=== PATIENT | male | born 1980 | race Caucasian/White ===

== ENCOUNTER 2020-07-25 10:20 | Outpatient (REF) | payer BC, SELFPAY ==
[2020-07-25 11:15] LABS: MANUAL DIFF FLAG NO
[2020-07-25 11:33] LABS: Basophils Absolute Auto 0.1 X10*3/uL (0.0-0.2); Basophils Percent Auto 1.3 % (0-2); Eosinophils Absolute Auto 0.2 X10*3/uL (0.0-0.4); Eosinophils Percent Auto 2.3 % (0-4); Hematocrit 43.7 % (42-52); Hemoglobin 14.6 g/dl (14.0-18.0); Imm Gran Abs Auto 0.08 X10*3/uL (0.00-0.03); Lymphocytes Absolute Auto 3.3 X10*3/uL (1.2-4.9); Lymphocytes Percent Auto 40.5 % (20-40); Mean Corpuscular HGB Conc 33.4 g/dl (31.0-36.0); Mean Corpuscular Hemoglobin 30.4 pg (27.0-33.0); Mean Corpuscular Volume 90.9 fL (80-98); Mean Platelet Volume 10.9 fL (9.4-12.4); Monocytes Absolute Auto 0.9 X10*3/uL (0.1-1.2); Monocytes Percent Auto 11.1 % (2-11); Neutrophils Absolute Auto 3.6 X10*3/uL (2.0-8.3); Neutrophils Percent Auto 43.8 % (45-73); Platelet Count 196 X10*3/uL (160-400); Red Blood Count 4.81 X10*6/uL (4.60-5.80); Red Cell Distribution Width 13.1 % (11.0-16.0); White Blood Count 8.2 X10*3/uL (4.8-10.8)
[2020-07-25 12:16] LABS: Microalbum/Creatinine Ratio Ur 3.9 ug/mg cr
[2020-07-25 12:16] LABS: Uric Acid 7.5 mg/dL (3.4-7.0)
[2020-07-25 12:18] LABS: Alanine Aminotransferase 37 U/L (0-40); Albumin Level 4.6 g/dL (3.5-5.0); Alkaline Phosphatase 84 U/L (39-117); Anion Gap 13 (12-20); Aspartate Amino Transferase 31 U/L (5-37); Bilirubin Total 0.8 mg/dL (0.0-1.0); Blood Urea Nitrogen 18 mg/dL (9-16); Calcium 9.6 mg/dL (8.4-10.2); Carbon Dioxide 29 mmol/L (22-29); Chloride 103 mmol/L (96-108); Cholesterol 192 mg/dL; Estimated Glomerular Filt Rate > 60; Glucose Fasting 92 mg/dL (60-99); HDL Cholesterol 41 mg/dL; LDL Cholesterol Calculated 131 mg/dl; Potassium 4.3 mmol/L (3.3-5.1); Sodium 141 mmol/L (135-145); Triglycerides 102 mg/dL
[2020-07-25 12:40] LABS: TSH reflex Free T4 0.13 uIU/mL (0.32-4.0)
[2020-07-25 13:32] LABS: Free T4 (Free Thyroxine) 1.09 ng/dL (0.71-1.85)
== END 2020-07-25 10:21 | disposition home or self-care (01) ==
LOC: HO.LAB 10:20
PROVIDERS: Family Medicine; Visit Provider Physician Assistant
DX: I10 Essential (primary) hypertension (principal); E03.9 Hypothyroidism, unspecified; M79.671 Pain in right foot
CPT/HCPCS: 36415; 80053; 80061; 82043; 84439; 84443; 84550; 85025

== ENCOUNTER 2021-09-07 09:07 | Outpatient (REF) | payer OTHER, SELFPAY ==
[2021-09-07 10:13] LABS: Hemoglobin 13.8 g/dl (14.0-18.0); Mean Corpuscular HGB Conc 32.9 g/dl (31.0-36.0); Mean Corpuscular Hemoglobin 29.4 pg (27.0-33.0); Mean Corpuscular Volume 89.6 fL (80.0-98.0); Mean Platelet Volume 11.5 fL (9.4-12.4); Platelet Count 209 X10*3/uL (160-400); Red Blood Count 4.69 X10*6/uL (4.60-5.80); Red Cell Distribution Width 12.9 % (11.0-16.0); White Blood Count 6.4 X10*3/uL (4.8-10.8)
[2021-09-07 10:35] LABS: Creatinine Urine 279.71 mg/dL; Microalbum/Creatinine Ratio Ur 4.2 ug/mg cr
[2021-09-07 10:42] LABS: Alanine Aminotransferase 16 U/L (0-40); Albumin Level 4.3 g/dL (3.5-5.0); Alkaline Phosphatase 73 U/L (39-117); Anion Gap 11 (12-20); Aspartate Amino Transferase 25 U/L (5-37); Bilirubin Total 0.6 mg/dL (0.0-1.0); Blood Urea Nitrogen 17 mg/dL (9-16); Calcium 9.1 mg/dL (8.4-10.2); Carbon Dioxide 25 mmol/L (22-29); Chloride 109 mmol/L (96-108); Cholesterol 184 mg/dL; Estimated Glomerular Filt Rate > 60; Glucose Fasting 106 mg/dL (60-99); HDL Cholesterol 34 mg/dL; LDL Cholesterol Calculated 133 mg/dl; Potassium 4.6 mmol/L (3.3-5.1); Sodium 140 mmol/L (135-145); Total Protein 6.5 g/dL (6.5-8.0); Triglycerides 85 mg/dL
[2021-09-07 10:54] LABS: TSH reflex Free T4 0.04 uIU/mL (0.32-4.0)
[2021-09-07 12:13] LABS: Free T4 (Free Thyroxine) 1.41 ng/dL (0.71-1.85)
== END 2021-09-07 09:08 | disposition home or self-care (01) ==
LOC: HO.LAB 09:07
PROVIDERS: PCP Physician Assistant; Visit Provider Physician Assistant
DX: I10 Essential (primary) hypertension (principal); E03.9 Hypothyroidism, unspecified
CPT/HCPCS: 36415; 80053; 80061; 82043; 84439; 84443; 85027

== ENCOUNTER 2022-07-29 13:19 | Emergency (ER) | payer OTHER, SELFPAY ==
--- NOTE | ~2022-07-29 | XR_ITS ---
EXAMINATION: Lumbar spine and cervical spine. CLINICAL INDICATIONS: The. Pain. COMPARISON: MRI lumbar spine 05/08/2011 TECHNIQUE: 3 views lumbar spine and 3 views cervical spine. FINDINGS: Lumbar spine: There is maintained lumbar lordosis. There is loss of L5-S1 disc height. Rest the disc heights are normal. No visible acute fracture, dislocation or subluxation seen. The paravertebral soft tissues are normal. Cervical spine: There is normal cervical lordosis. The vertebral heights, alignment and disc heights are normal. No visible acute fracture, dislocation or subluxation seen. No bony mallet. The soft tissues are normal. XR/XR lumbar spine 2-3V IMPRESSION: Unremarkable lumbar spine exam. Unremarkable cervical spine exam.
--- NOTE | ~2022-07-29 | XR_ITS ---
EXAMINATION: Lumbar spine and cervical spine. CLINICAL INDICATIONS: The. Pain. COMPARISON: MRI lumbar spine 05/08/2011 TECHNIQUE: 3 views lumbar spine and 3 views cervical spine. FINDINGS: Lumbar spine: There is maintained lumbar lordosis. There is loss of L5-S1 disc height. Rest the disc heights are normal. No visible acute fracture, dislocation or subluxation seen. The paravertebral soft tissues are normal. Cervical spine: There is normal cervical lordosis. The vertebral heights, alignment and disc heights are normal. No visible acute fracture, dislocation or subluxation seen. No bony mallet. The soft tissues are normal. XR/XR cervical spine 2V IMPRESSION: Unremarkable lumbar spine exam. Unremarkable cervical spine exam.
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
[2022-07-29 14:40] VITALS: BP 136/87; PULSE 67; RESP 18; TEMP 36.3; O2SAT 98; BMI 25.4
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
[2022-07-29] MEDS: Cyclobenzaprine HCl 10 MG TABLET PO (16:19)
[2022-07-29] MEDS: oxyCODONE HCl Immed Release 5 MG TABLET PO (16:20)
--- NOTE | 2022-07-29 16:23 | PC.NURSE ---
pt medicated per MAY for 10/24 left sided lower back, neck and shoulder pain, call baeza within reach [facility]
== END 2022-07-29 16:34 | disposition home or self-care (01) ==
PROVIDERS: Emergency Provider Emergency Medicine; PCP Physician Assistant
DX: S39.012A Strain of muscle, fascia and tendon of lower back, initial encounter (principal); M54.2 Cervicalgia; M54.16 Radiculopathy, lumbar region; V43.62XA Car passenger injured in collision with other type car in traffic accident, initial encounter; Y93.9 Activity, unspecified; Y92.410 Unspecified street and highway as the place of occurrence of the external cause; Y99.9 Unspecified external cause status; Z79.899 Other long term (current) drug therapy
CPT/HCPCS: 72040; 72100; 99283

== ENCOUNTER 2022-09-16 10:29 | Outpatient (REF) | payer SELFPAY | END 2022-09-16 10:30 | disposition home or self-care (01) | LOC: HO.LAB 10:29 | PROVIDERS: PCP Physician Assistant; Visit Provider Physician Assistant | DX: I10 Essential (primary) hypertension (principal) | CPT/HCPCS: 36415; 80053; 80061; 82043; 84443; 85027 ==

== ENCOUNTER 2022-10-29 11:00 | Outpatient (AMB) | payer OTHER, SELFPAY ==
[2022-10-29 11:13] VITALS: BP 112/68; PULSE 64; O2SAT 98; BMI 23.9
--- NOTE | 2022-10-29 11:13 | MHC.PC.OV ---
Vital Signs 10/29/22 11:13 Height 5 ft 7 in Weight 152 lb 8 oz BMI 23.9 BP 112/68 Blood Pressure Location Lt brachial Position Sitting Pulse 64 Pulse Source Pulse Oximeter Pulse Oximetry (%) 98 Oxygen Delivery Method Room Air Intake Visit Reasons: PE Allergies No Known Allergies Allergy (Verified 10/29/22 11:39) Medication List - Last Reconciled 10/29/22 by Ean Navarro PA-C celecoxib 100 mg PO BID cholecalciferol (vitamin D3) 25 mcg PO DAILY levothyroxine 125 mcg PO DAILY 90 days methocarbamol 750 mg PO BEDTIME pregabalin 75 mg PO BID sildenafil 50 mg PO DAILY PRN sumatriptan succinate 100 mg PO ONCE PRN 7 days tramadol 50 mg PO DAILY PRN 30 days Tobacco use date assessed: 06/19/22 HPI PE HPI Details Patient is a 42--year-old male here today for routine annual physical Patient has a past medical history significant for hypothyroidism, GERD, anxiety, history alcohol abuse, chronic lumbar spine pain. Concerns-> he reports his anxiety has been difficult to control, often having trouble with his concentration and focus on his job task and in his personal life. He is planning on establishing with a mental health therapist and trying mine from this to help him with his attention focus. --> of note he does report his father recently diagnosed with stage IV esophageal and liver cancer. ? .. ? Major depressive disorder:? Feels his depression is well managed without mental health medications.? Has been sober now for 4 years?. 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 ? .. ? Hypertension: Has been checking his blood pressure at home reports systolic blood pressure is 1 teens to 120s.? Denies any chest discomfort palpitations.? .. ? Hypothyroid:? Patient's most recent TSH continues to be low.? Otherwise patient without hyper thyroid symptoms. Will reduce his dose of levothyroxine to 125 mcg ? .. ? Lumbar spine pain:? Patient is followed by [facility] and received cortisone injection lumbar spine which helped 50 %.? Patient reports his lumbar spine pain has been stable only using 1 tramadol in the evening. Also was started methocarbamol 750 which he reports helps his lumbar spine pain..? Vaccines: Up-to-date COVID and tetanus vaccine. Laboratory Tests 09/16/22 09/16/22 10:38 10:38 Hgb 14.0 Creatinine 1.01 Fasting Glucose 111 H Cholesterol 196 TSH 0.89 [facility] Medical History (Updated 10/29/22 @ 16:20 by Ean Navarro PA-C) Erectile dysfunction Surgical History No history of previous surgery Family History (Updated 10/29/22 @ 11:42 by Ean Navarro PA-C) Mother Hypertension Hypothyroidism Father Type 1 diabetes Morbidly obese Esophageal cancer Maternal Uncle Mental health disorder Paternal Grandfather Colon cancer Other Substance use disorder Social History Housing: House Alcohol intake: former Year quit: 2019 Patient Tobacco Use Status: Never used Tobacco e-Cigarette/Vaping Use: Never Used Second Hand Smoke Exposure: No service: No Current occupational status: employed 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 1. Little interest or pleasure in doing things: not at all 2. Feeling down, depressed, or hopeless: not at all 3. Trouble falling or staying asleep, or sleeping too much: not at all 4. Feeling tired or having little energy: not at all 5. Poor appetite or overeating: not at all 6. Feeling bad about yourself - or that you are a failure or have let yourself or your family down: not at all 7. Trouble concentrating on things, such as reading the newspaper or watching television: not at all 8. Moving or speaking so slowly that other people could have noticed. Or the opposite - being so fidgety or restless that you have been moving around a lot more than usual: not at all 9. Thoughts that you would be better off or of hurting yourself in some way: not at all Total score: 0 Depression Screening Interpretation: Negative 61591 - PHQ-9 Billing: Yes Source: Developed by Keyona OrdazW. Kal, Bonifacio Call and colleagues, with an educational layton from [employer]. Thrive Questionnaire Date Thrive assessed: 06/19/22 I am a: Patient What is your living situation today?: I have a steady place to live Within the past 12 months, did the food you bought not last and you didn't have the money to get more?: Never true Within the past 12 months, did you worry whether your food would run out before you got money to buy more?: Never true AUDIT C Alcohol Use Questionnaire (AUDIT-C) 1. How often do you have a drink containing alcohol?: Never 3. How often do you have six or more drinks on one occasion?: Never Total Score: 0 GISELL-7 AMB Questionnaire GISELL-7 Date GISELL - 7 assessed: 06/19/22 Feeling nervous, anxious, or on edge: 3 = Nearly every day Not being able to stop or control worryin = More than half the days Worrying too much about different things: 1 = Several days Trouble relaxin = Not at all Being so restless that it is hard to sit still: 0 = Not at all Becoming easily annoyed or irritable: 0 = Not at all Feeling afraid as if something awful might happen: 2 = More than half the days Total GISELL-7 score (0-4 normal; 5-9 mild; 10-14 moderate; 15-21 severe): 8 Source: Developed by Drs. Tiago Jalloh, Bonifacio Jaimes and colleagues, with an educational layton from [employer]. GISELL-7 Assessment Billing GISELL-7 Assessment Tool: GISELL-7 Assessment 76244 Review of Systems Const Denies body aches, Denies chills, Denies excessive sweating, Denies fatigue, Denies fever(s) and Denies headache(s) Eyes Denies blurry vision ENT Denies dysphagia, Denies vertigo, Denies dizziness, Denies headache(s), Denies hearing loss and Denies tinnitus Card Denies chest pain, Denies chest pain with activity, Denies syncope, Denies irregular heart rhythm and Denies dyspnea Resp Denies chest congestion, Denies cough, Denies hemoptysis, Denies dyspnea and Denies wheezing GI Denies abdominal pain, Denies melena, Denies hematochezia, Denies coffee ground emesis, Denies dysphagia, Denies diarrhea, Denies nausea and Denies vomiting Denies difficulty urinating, Denies dysuria, Denies urinary frequency, Denies urinary hesitancy and Denies urinary urgency Musc Denies arthralgias, Denies limited range of motion, Denies muscle cramps and Denies muscle weakness Skin/Breast Denies rash and Denies skin ulcer Neuro Denies Abnormal speech present, Denies confusion, Denies vertigo, Denies dizziness, Denies syncope, Denies headache(s), Denies memory loss and Denies seizure-like activity Psych Denies anxiety, Denies confusion, Denies depression, Denies memory loss, Denies panic attacks and Denies paranoia Endo Denies excessive sweating, Denies fatigue, Denies flushing, Denies polydipsia and Denies polyuria Aller/Immun Denies wheezing Physical exam (Primary Care) Vital Signs: Last Vital Signs Pulse 64 10/29/22 11:13 BP 112/68 10/29/22 11:13 Pulse Ox 98 10/29/22 11:13 Oxygen Delivery Method Room Air 10/29/22 11:13 BMI result Body Mass Index 23.9 Tobacco/Smoking Status: Tobacco use Status Tobacco use date assessed 06/19/22 10/29/22 11:17 Patient Tobacco Use Status Never used Tobacco 10/29/22 11:17 e-Cigarette/Vaping Use Never Used 10/29/22 11:17 PHQ-9: PHQ-9 Score PHQ-9: Total score 0 10/29/22 11:43 Depression Screening Interpretation: Negative Thrive Assessment: Date of Thrive Assessment Date Thrive assessed 06/19/22 10/29/22 11:17 Const General: cooperative, comfortable, no acute distress, alert and awake; No confusion Orientation/consciousness: oriented to person, oriented to place, patient oriented x3 and No confusion HENMT Head: Yes normocephalic Ears: external ears normal and TM's normal bilaterally Face and sinus: No sinus tenderness Mouth: Normal oral and palatal mucosa present and tongue normal Teeth and gingiva: dentition normal and gingiva normal Throat: Yes posterior oropharynx normal, Yes tonsils normal and Yes uvula midline Eyes Conjunctivae: conjunctivae normal Sclerae: sclerae normal Pupils: Equal, round and reactive pupils present EOM: EOMs intact bilaterally Direct Ophthalmoscopy: No no photophobia Neck Neck: Yes no lymphadenopathy, No tender and Yes no JVD Thyroid: Thyroid normal Carotids: no bruits Chest Chest palpation & inspection: no tenderness Resp Effort & Inspection: normal respiratory effort, no audible wheezes, not labored and no stridor Auscultation: no crackles, no rales, no rhonchi and no wheezes Cardio Jugular venous distension: no JVD Rate: regular rate, not bradycardic and not tachycardic Rhythm: regular rhythm Bruits: no carotid bruits Peripheral pulses: Peripheral pulses 2+ throughout GI Inspection: Yes normal to inspection, No abdominal wall ecchymosis and No visible herniation Palpation (GI): Soft to palpation, nontender, no guarding, not rigid and No hepatosplenomegaly present Auscultation: normoactive bowel sounds General: Yes no CVA tenderness Back/Spine/Pelvis Back: no CVA tenderness and No back tenderness Cervical Spine: cervical ROM normal Thoracic/Lumbar Spine: thoracic and lumbar spine normal to inspection, straight leg raise negative bilaterally, No thoraco-lumbar ROM limited and No lumbar spinal tenderness Skin Lesions: no lesions Rashes: no rashes Wounds: no wounds Neuro General: oriented to person, oriented to place, patient oriented x3, CN's II-XI intact bilaterally and No confusion Cranial nerves: Yes Equal, round and reactive pupils present and Yes Normal accommodation reflex present Cognition (Neuro): normal cognition Speech: No Abnormal speech present Gait exam (Neuro): Normal gait present Motor exam (neuro): 5/5 motor strength present throughout Extrem Right upper extremity: full ROM; no cyanosis Left upper extremity: full ROM; no cyanosis Right lower extremity: no edema Left lower extremity: no edema Psych Appearance: grossly normal Mental Status: mental status grossly normal Affect: normal affect Attitude: cooperative Thought process: Normal thought process present Assessment and Plan Assessment & Plan (1) Annual physical exam: Code(s): Z00.00 - Encounter for general adult medical examination without abnormal findings (2) GISELL (generalized anxiety disorder): Code(s): F41.1 - Generalized anxiety disorder Plan: Patient's GISELL-7 score positive for moderate anxiety which has been existing condition for him. Does report increased anxiety as of late and attributes this to his new work and personal problems in his life. He reports he is able to manage though would like to speak with a mental therapist (3) HTN (hypertension): Code(s): I10 - Essential (primary) hypertension Qualifiers: Hypertension type: essential hypertension Qualified Code(s): I10 - Essential (primary) hypertension Plan: Blood pressure acceptable today in office. His blood pressure now is lifestyle managed. Goal blood pressure is to remain below 140/90 (4) Hypothyroidism: Code(s): E03.9 - Hypothyroidism, unspecified Qualifiers: Hypothyroidism type: unspecified Qualified Code(s): E03.9 - Hypothyroidism, unspecified Plan: Patient continues on levothyroxine 125 mcg. Most recent TSH has been stable. Will continue to follow TSH to assure normal. (5) Migraines: Code(s): G43.909 - Migraine, unspecified, not intractable, without status migrainosus Qualifiers: Intractability: not intractable Migraine type: without aura Status migrainosus presence: without status migrainosus Qualified Code(s): G43.009 - Migraine without aura, not intractable, without status migrainosus Plan: Patient reports migraines have been fairly well controlled since he has been sober from alcohol and only has his use a med a Triptan and very limited p.r.n. basis. (6) History of alcohol use disorder: Code(s): Z87.898 - Personal history of other specified conditions Plan: Has been sober now for many years from a guerrier and continues in a 12 step program. He remains focused on his sobriety (7) Lumbar spondylosis with myelopathy: Code(s): M47.16 - Other spondylosis with myelopathy, lumbar region Plan: Continues to use Lyrica, methocarbamol and tramadol with decent affect on reducing his lumbar spine pain. Does periodically see a cad application support specialist and gets cortisone injections in his lower lumbar spine Orders: Orders Comprehensive [place]. Panel Fast 365 Days I10 - Essential (primary) hypertension TSH reflex Free T4 365 Days E03.9 - Hypothyroidism, unspecified Complete Blood Count no Diff 365 Days I10 - Essential (primary) hypertension CT NG by PCR Today E03.9 - Hypothyroidism, unspecified, Z20.2 - Contact with and (suspected) exposure to infections with a predominantly sexual mode of transmission HIV Ab/Ag Today E03.9 - Hypothyroidism, unspecified, Z11.3 - Encounter for screening for infections with a predominantly sexual mode of transmission Syphilis Screen Today E03.9 - Hypothyroidism, unspecified, Z11.3 - Encounter for screening for infections with a predominantly sexual mode of transmission Referrals Counseling Referral F41.1 - Generalized anxiety disorder Coding Level of Care Code Est Pt Prev Care 40-64y(59310) Diagnoses Annual physical exam Z00.00 GISELL (generalized anxiety disorder) F41.1 HTN (hypertension) I10 Hypertension type: essential hypertension Hypothyroidism E03.9 Hypothyroidism type: unspecified Migraines G43.009 Intractability: not intractable Migraine type: without aura Status migrainosus presence: without status migrainosus History of alcohol use disorder Z87.898 Lumbar spondylosis with myelopathy M47.16 Additional Codes GISELL-7 Assessment Billing - GISELL-7 Assessment Tool: GISELL-7 Assessment [id number] ([id number])
== END 2022-10-29 11:55 | disposition home or self-care (01) ==
PROVIDERS: PCP Physician Assistant; Visit Provider Physician Assistant
DX: Z00.00 Encounter for general adult medical examination without abnormal findings (principal); I10 Essential (primary) hypertension; E03.9 Hypothyroidism, unspecified; Z87.898 Personal history of other specified conditions; G43.009 Migraine without aura, not intractable, without status migrainosus; F41.1 Generalized anxiety disorder; M47.16 Other spondylosis with myelopathy, lumbar region
CPT/HCPCS: 99396

== ENCOUNTER 2022-10-29 12:05 | Outpatient (REF) | payer OTHER, SELFPAY ==
[2022-10-29 14:34] LABS: Syphilis Screen Nonreactive (Nonreactive)
[2022-10-30 04:02] LABS: HIV AB/AG Nonreactive (Nonreactive); HIV Num 1 0.06 S/CO (0.00-0.99)
[2022-10-30 14:55] LABS: CT PCR NOT DETECTED (Not Detect.); NG PCR NOT DETECTED (Not Detect.)
== END 2022-10-29 12:06 | disposition home or self-care (01) ==
LOC: HO.LAB 12:05
PROVIDERS: PCP Physician Assistant; Visit Provider Physician Assistant
DX: Z11.4 Encounter for screening for human immunodeficiency virus [HIV] (principal); E03.9 Hypothyroidism, unspecified; Z20.2 Contact with and (suspected) exposure to infections with a predominantly sexual mode of transmission
CPT/HCPCS: 0353U; 84443; 86780; 87389

== ENCOUNTER 2023-05-01 10:49 | Outpatient (AMB) | payer OTHER, SELFPAY ==
[2023-05-01 10:53] VITALS: BP 122/70; PULSE 85; O2SAT 97; BMI 24.1
--- NOTE | 2023-05-01 10:53 | MHC.PC.OV ---
Vital Signs 05/01/23 10:53 Height 5 ft 7 in Weight 154 lb 0.8 oz BMI 24.1 BP 122/70 Blood Pressure Location Lt brachial Position Sitting Pulse 85 Pulse Source Pulse Oximeter Pulse Oximetry (%) 97 Oxygen Delivery Method Room Air Intake Visit Reasons: f/u hypothyroid Intake Note: Patient is here to follow up on hypothyroid Sustainability Manager Required: No Allergies No Known Allergies Allergy (Verified 05/01/23 11:01) Medication List - Last Reconciled 05/01/23 by Ean Navarro PA-C celecoxib 100 mg PO BID cholecalciferol (vitamin D3) 25 mcg PO DAILY levothyroxine 125 mcg PO DAILY 90 days methocarbamol 750 mg PO BEDTIME pregabalin 75 mg PO BID sumatriptan succinate 100 mg PO ONCE PRN 7 days tadalafil (Cialis) 20 mg PO DAILY 7 days tramadol 50 mg PO DAILY PRN 30 days Tobacco use date assessed: 05/01/23 Dental Screening Dental Screen Date: 05/01/23 HPI f/u hypothyroid HPI Details Patient is a 42--year-old male here today for follow-up visit. Patient has a past medical history significant for hypothyroidism, GERD, anxiety, history alcohol abuse, chronic lumbar spine pain. Concerns-> he reports his anxiety has been difficult to control, often having trouble with his concentration and focus on his job task and in his personal life. He established with a mental health therapist he sees every week. He believes his anxiety has increased due to more work stress and responsibilities. We did discuss as needed medication for anxiety though he would like to work on nonpharmacological techniques to reduce his anxiety. .. ? Major depressive disorder:? Feels his depression is well managed without mental health medications.? Has been sober now for 4 years?. 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 ? .. ? Hypertension: Has been checking his blood pressure at home reports systolic blood pressure is 1 teens to 120s.? Denies any chest discomfort palpitations.? .. ? Hypothyroid:? Most recent TSH has been stable. He continues on levothyroxine 125 mcg. ? .. ? Lumbar spine pain:? Patient is followed by spine in [facility] and received cortisone injection lumbar spine which helped 50 %.? Patient reports his lumbar spine pain has been stable only using 1 tramadol in the evening. Also was started methocarbamol 750 which he reports helps his lumbar spine pain.. 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 1. Little interest or pleasure in doing things: not at all 2. Feeling down, depressed, or hopeless: not at all 3. Trouble falling or staying asleep, or sleeping too much: not at all 4. Feeling tired or having little energy: not at all 5. Poor appetite or overeating: not at all 6. Feeling bad about yourself - or that you are a failure or have let yourself or your family down: not at all 7. Trouble concentrating on things, such as reading the newspaper or watching television: not at all 8. Moving or speaking so slowly that other people could have noticed. Or the opposite - being so fidgety or restless that you have been moving around a lot more than usual: not at all 9. Thoughts that you would be better off or of hurting yourself in some way: not at all Total score: 0 Depression Screening Interpretation: Negative Depression Screening Done: Yes 79279 - PHQ-9 Billing: Yes Source: Developed by Drs. Tiago Jalloh, KeyonaBonifacio Leon and colleagues, with an educational layton from [employer]. Thrive Questionnaire Date Thrive assessed: 05/01/23 GISELL-7 AMB Questionnaire GISELL-7 Date GISELL - 7 assessed: 06/19/22 Feeling nervous, anxious, or on edge: 2 = More than half the days Not being able to stop or control worryin = More than half the days Worrying too much about different things: 2 = More than half the days Trouble relaxin = Nearly every day Being so restless that it is hard to sit still: 1 = Several days Becoming easily annoyed or irritable: 0 = Not at all Feeling afraid as if something awful might happen: 0 = Not at all Total GISELL-7 score (0-4 normal; 5-9 mild; 10-14 moderate; 15-21 severe): 10 Source: Developed by Drs. Tiago Jalloh, Bonifacio Jaimes and colleagues, with an educational layton from [employer]. GISELL-7 Assessment Billing GISELL-7 Assessment Tool: GISELL-7 Assessment [id number] Physical exam (Primary Care) Vital Signs: Last Vital Signs Pulse 85 05/01/23 10:53 BP 122/70 05/01/23 10:53 Pulse Ox 97 05/01/23 10:53 Oxygen Delivery Method Room Air 05/01/23 10:53 BMI result Body Mass Index 24.1 Tobacco/Smoking Status: Tobacco use Status Tobacco use date assessed 05/01/23 05/01/23 11:02 Patient Tobacco Use Status Never used Tobacco 05/01/23 10:54 e-Cigarette/Vaping Use Never Used 05/01/23 10:54 PHQ-9: PHQ-9 Score PHQ-9: Total score 0 05/01/23 11:21 Depression Screening Interpretation: Negative Thrive Assessment: Date of Thrive Assessment Date Thrive assessed 05/01/23 05/01/23 11:02 Assessment and Plan Assessment & Plan (1) GISELL (generalized anxiety disorder): Code(s): F41.1 - Generalized anxiety disorder Plan: He reports he has been suffering with more anxiety and attributes this to work-related stress and more responsibilities at work. He has not interested in starting any new medication at this time for his anxiety though is contemplating this. He is seeing a mental health therapist on a weekly basis. (2) HTN (hypertension): Code(s): I10 - Essential (primary) hypertension Qualifiers: Hypertension type: essential hypertension Qualified Code(s): I10 - Essential (primary) hypertension Plan: Blood pressure acceptable today in office. His blood pressure now is lifestyle managed. Goal blood pressure is to remain below 140/90 (3) Hypothyroidism: Code(s): E03.9 - Hypothyroidism, unspecified Qualifiers: Hypothyroidism type: unspecified Qualified Code(s): E03.9 - Hypothyroidism, unspecified Plan: Patient continues on levothyroxine 125 mcg. Most recent TSH has been stable. Will continue to follow TSH to assure normal. (4) Migraines: Code(s): G43.909 - Migraine, unspecified, not intractable, without status migrainosus Qualifiers: Migraine type: without aura Status migrainosus presence: without status migrainosus Intractability: not intractable Qualified Code(s): G43.009 - Migraine without aura, not intractable, without status migrainosus Plan: Patient reports migraines have been fairly well controlled since he has been sober from alcohol and only has his use a med a Triptan and very limited p.r.n. basis. (5) History of alcohol use disorder: Code(s): Z87.898 - Personal history of other specified conditions Plan: Has been sober now for many years from a guerrier and continues in a 12 step program. He remains focused on his sobriety and feels well (6) Lumbar spondylosis with myelopathy: Code(s): M47.16 - Other spondylosis with myelopathy, lumbar region Plan: Continues to use Lyrica, methocarbamol and tramadol with decent affect on reducing his lumbar spine pain. Does periodically see a gis specialist and gets cortisone injections in his lower lumbar spine Orders: Orders Microalbumin, Random (w Creat) Today I10 - Essential (primary) hypertension Comprehensive [place]. Panel Fast Today I10 - Essential (primary) hypertension TSH reflex Free T4 Today E03.9 - Hypothyroidism, unspecified Coding Level of Care Code Est Pt Level 4 (28708) Diagnoses GISELL (generalized anxiety disorder) F41.1 Essential hypertension I10 Hypertension type: essential hypertension Hypothyroidism, unspecified type E03.9 Hypothyroidism type: unspecified Migraine without aura and without status migrainosus, not intractable G43.009 Migraine type: without aura Status migrainosus presence: without status migrainosus Intractability: not intractable History of alcohol use disorder Z87.898 Lumbar spondylosis with myelopathy M47.16 Additional Codes GISELL-7 Assessment Billing - GISELL-7 Assessment Tool: GISELL-7 Assessment [id number] ([id number])
== END 2023-05-01 11:52 | disposition home or self-care (01) ==
PROVIDERS: PCP Physician Assistant; Visit Provider Physician Assistant
DX: I10 Essential (primary) hypertension (principal); F41.1 Generalized anxiety disorder; E03.9 Hypothyroidism, unspecified; G43.009 Migraine without aura, not intractable, without status migrainosus; Z87.898 Personal history of other specified conditions; M47.16 Other spondylosis with myelopathy, lumbar region
CPT/HCPCS: 99214

== ENCOUNTER 2023-12-24 09:26 | Outpatient (AMB) | payer OTHER, SELFPAY ==
--- NOTE | 2023-12-24 09:27 | MHC.PC.OV ---
Vital Signs 12/24/23 09:34 Height 5 ft 7 in Weight 171 lb 6 oz BMI 26.8 BP 116/82 Blood Pressure Location Lt brachial Position Sitting Pulse 67 Pulse Source Pulse Oximeter Pulse Oximetry (%) 97 Oxygen Delivery Method Room Air Intake Visit Reasons: annual exam Intake Note: Patient is here today for a physical. Mini Lab Operator Required: No Accompanied by: Self / Same As Patient Allergies No Known Allergies Allergy (Verified 12/24/23 09:35) Medication List - Last Reconciled 12/24/23 by Ean Navarro PA-C buspirone 5 mg PO BID 30 days celecoxib 100 mg PO BID cholecalciferol (vitamin D3) 25 mcg PO DAILY levothyroxine 125 mcg PO DAILY 90 days methocarbamol 750 mg PO BEDTIME pregabalin 75 mg PO BID sumatriptan succinate 100 mg PO ONCE PRN 7 days tadalafil (Cialis) 20 mg PO DAILY 7 days tramadol 50 mg PO DAILY PRN 30 days Tobacco use date assessed: 12/24/23 Dental Screening Dental Screen Date: 12/24/23 Did you have a dental visit in the last 12 months?: Yes Did you have a dental problem in the last 6 months where you did not have access to dental care?: No Was dental information given to patient?: Patient has dentist HPI annual exam HPI Details Patient is a 43--year-old male here today for annual physical. Patient has a past medical history significant for hypothyroidism, GERD, anxiety, history alcohol abuse, chronic lumbar spine pain. Anxiety: Patient does report using buspirone 5 mg before bed which has helped him with his anxiety. He is still does have breakthrough anxiety related to his work and stress. .. ? Major depressive disorder:? Feels his depression is well managed without mental health medications.? Has been sober now for nearly 5 years?. 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 ? .. ? Hypertension: Has been checking his blood pressure at home reports systolic blood pressure is 1 teens to 120s.? Denies any chest discomfort palpitations.? .. ? Hypothyroid:? Most recent TSH has been stable. He continues on levothyroxine 125 mcg. ? .. ? Lumbar spine pain:? Patient is followed by [facility] in [facility] and received cortisone injection lumbar spine which helped 50 %.? Patient reports his lumbar spine pain has been stable for the most part though at times he does need an extra tremor though during the day to help him with his pain. He is interested in increasing his total monthly amount of tremor though in order to be able to take an extra dose. He does understand they habit-forming nature of tramadol and does promise to use on a p.r.n. basis Vaccines: Up-to-date with COVID vaccine, tetanus vaccine, considering flu vaccine today. 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 1. Little interest or pleasure in doing things: not at all 2. Feeling down, depressed, or hopeless: several days 3. Trouble falling or staying asleep, or sleeping too much: not at all 4. Feeling tired or having little energy: not at all 5. Poor appetite or overeating: not at all 6. Feeling bad about yourself - or that you are a failure or have let yourself or your family down: not at all 7. Trouble concentrating on things, such as reading the newspaper or watching television: more than half the days 8. Moving or speaking so slowly that other people could have noticed. Or the opposite - being so fidgety or restless that you have been moving around a lot more than usual: not at all 9. Thoughts that you would be better off or of hurting yourself in some way: not at all Total score: 3 [id number] - PHQ-9 Billing: Yes Source: Developed by Drs. Tiago Jalloh, Keyona Bowden, Bonifacio Call and colleagues, with an educational layton from [employer]. Thrive Questionnaire Date Thrive assessed: 12/24/23 I am a: Patient What is your living situation today?: I have a steady place to live Within the past 12 months, did the food you bought not last and you didn't have the money to get more?: Never true Within the past 12 months, did you worry whether your food would run out before you got money to buy more?: Never true Do you have trouble paying for medicines?: No Do you have trouble getting transportation to medical appointments?: No Do you have trouble paying your heating and electricity bill?: No Do you have trouble taking care of your child, family member or friend?: No Do you have trouble with day-to-day activities such as bathing, preparing meals, shopping, managing finances, etc.?: No Are you currently unemployed and looking for a job?: No Are you interested in more education?: No Please select the resources that you would like help with: None Currently or been in a relationship where the following occur: No concerns reported THRIVE Score: 0 AUDIT C Alcohol Use Questionnaire (AUDIT-C) 1. How often do you have a drink containing alcohol?: Never 3. How often do you have six or more drinks on one occasion?: Never Total Score: 0 GISELL-7 AMB Questionnaire GISELL-7 Date GISELL - 7 assessed: 12/24/23 Feeling nervous, anxious, or on edge: 1 = Several days Not being able to stop or control worryin = Several days Worrying too much about different things: 1 = Several days Trouble relaxin = Several days Being so restless that it is hard to sit still: 0 = Not at all Becoming easily annoyed or irritable: 1 = Several days Feeling afraid as if something awful might happen: 1 = Several days Total GISELL-7 score (0-4 normal; 5-9 mild; 10-14 moderate; 15-21 severe): 6 Source: Developed by Drs. Tiago Jalloh, Keyona Bowden, Bonifacio Call and colleagues, with an educational layton from [employer]. GISELL-7 Assessment Billing GISELL-7 Assessment Tool: GISELL-7 Assessment 23866 Review of Systems Const Denies body aches, Denies chills, Denies excessive sweating, Denies fatigue, Denies fever(s) and Denies headache(s) Eyes Denies blurry vision ENT Denies dysphagia, Denies vertigo, Denies dizziness, Denies headache(s), Denies hearing loss and Denies tinnitus Card Denies chest pain, Denies chest pain with activity, Denies syncope, Denies irregular heart rhythm and Denies dyspnea Resp Denies chest congestion, Denies cough, Denies hemoptysis, Denies dyspnea and Denies wheezing GI Denies abdominal pain, Denies melena, Denies hematochezia, Denies coffee ground emesis, Denies dysphagia, Denies diarrhea, Denies nausea and Denies vomiting Denies difficulty urinating, Denies dysuria, Denies urinary frequency, Denies urinary hesitancy and Denies urinary urgency Musc Reports back pain, Denies arthralgias, Denies limited range of motion, Denies muscle cramps and Denies muscle weakness Skin/Breast Denies rash and Denies skin ulcer Neuro Denies Abnormal speech present, Denies confusion, Denies vertigo, Denies dizziness, Denies syncope, Denies headache(s), Denies memory loss and Denies seizure-like activity Psych Denies anxiety, Denies confusion, Denies depression, Denies memory loss, Denies panic attacks and Denies paranoia Endo Denies excessive sweating, Denies fatigue, Denies flushing, Denies polydipsia and Denies polyuria Aller/Immun Denies wheezing Physical exam (Primary Care) Vital Signs: Last Vital Signs Pulse 67 12/24/23 09:34 BP 116/82 12/24/23 09:34 Pulse Ox 97 12/24/23 09:34 Oxygen Delivery Method Room Air 12/24/23 09:34 BMI result Body Mass Index 26.8 Tobacco/Smoking Status: Tobacco use Status Tobacco use date assessed 12/24/23 12/24/23 09:30 Patient Tobacco Use Status Never used Tobacco 12/24/23 09:39 e-Cigarette/Vaping Use Never Used 12/24/23 09:39 PHQ-9: PHQ-9 Score PHQ-9: Total score 3 12/24/23 09:43 Thrive Assessment: Date of Thrive Assessment Date Thrive assessed 12/24/23 12/24/23 09:30 Currently or been in a relationship where the following occur: No concerns reported Const General: cooperative, comfortable, no acute distress, alert and awake; No confusion Orientation/consciousness: oriented to person, oriented to place, patient oriented x3 and No confusion HENMT Head: Yes normocephalic Ears: external ears normal and TM's normal bilaterally Face and sinus: No sinus tenderness Mouth: Normal oral and palatal mucosa present and tongue normal Teeth and gingiva: dentition normal and gingiva normal Throat: Yes posterior oropharynx normal, Yes tonsils normal and Yes uvula midline Eyes Conjunctivae: conjunctivae normal Sclerae: sclerae normal Pupils: Equal, round and reactive pupils present EOM: EOMs intact bilaterally Direct Ophthalmoscopy: No no photophobia Neck Neck: Yes no lymphadenopathy, No tender and Yes no JVD Thyroid: Thyroid normal Carotids: no bruits Chest Chest palpation & inspection: no tenderness Resp Effort & Inspection: normal respiratory effort, no audible wheezes, not labored and no stridor Auscultation: no crackles, no rales, no rhonchi and no wheezes Cardio Jugular venous distension: no JVD Rate: regular rate, not bradycardic and not tachycardic Rhythm: regular rhythm Bruits: no carotid bruits Peripheral pulses: Peripheral pulses 2+ throughout GI Inspection: Yes normal to inspection, No abdominal wall ecchymosis and No visible herniation Palpation (GI): Soft to palpation, nontender, no guarding, not rigid and No hepatosplenomegaly present Auscultation: normoactive bowel sounds General: Yes no CVA tenderness Back/Spine/Pelvis Back: no CVA tenderness and No back tenderness Cervical Spine: cervical ROM normal Thoracic/Lumbar Spine: thoracic and lumbar spine normal to inspection, straight leg raise negative bilaterally, No thoraco-lumbar ROM limited and No lumbar spinal tenderness Skin Lesions: no lesions Rashes: no rashes Wounds: no wounds Neuro General: oriented to person, oriented to place, patient oriented x3, CN's II-XI intact bilaterally and No confusion Cranial nerves: Yes Equal, round and reactive pupils present and Yes Normal accommodation reflex present Cognition (Neuro): normal cognition Speech: No Abnormal speech present Gait exam (Neuro): Normal gait present Motor exam (neuro): 5/5 motor strength present throughout Extrem Right upper extremity: full ROM; no cyanosis Left upper extremity: full ROM; no cyanosis Right lower extremity: no edema Left lower extremity: no edema Psych Appearance: grossly normal Mental Status: mental status grossly normal Affect: normal affect Attitude: cooperative Thought process: Normal thought process present Office Procedures Flu Questionnaire Does the patient have a severe egg allergy?: No Does the patient have severe life threatening allergies?: No Does the patient have a fever or illness today?: No Has the patient ever had Guillain-Kenna Syndrome?: No Has the patient ever had any past reaction to a flu shot?: No Immunizations Fluarix Triv [id number] (PF) 45 mcg (15 mcg x 3)/0.5 mL IM syringe Performing Provider: Ean Navarro PA-C [facility] Administered by: STEPHANIE Maradiaga on 12/24/23 09:35 Dose Route Admin Location Dispensed Lot Number Expiration Date [facility] Mica Builder 0.5 mL IM Right Deltoid 0.5 mL [id number] 09/13/24 24048-187-79 Fav[employer] VIS Given Date VIS Provided VIS Publication Date 12/24/23 Single Vaccine 20 Eligibility Eligibility Date Funding Source Not [facility] Eligible 12/24/23 Private Coding Level of Care Code Est Pt Prev Care 40-64y([id number]) Diagnoses Annual physical exam Z00.00 Essential hypertension I10 Hypertension type: essential hypertension Hypothyroidism, unspecified type E03.9 Hypothyroidism type: unspecified GISELL (generalized anxiety disorder) F41.1 Lumbar spondylosis with myelopathy M47.16 Additional Codes GISELL-7 Assessment Billing - GISELL-7 Assessment Tool: GISELL-7 Assessment 39910 ([id number]) Assessment & Plan Assessment & Plan (1) Annual physical exam: Code(s): Z00.00 - Encounter for general adult medical examination without abnormal findings Category: Medical Plan: As per HPI (2) HTN (hypertension): Code(s): I10 - Essential (primary) hypertension Category: Medical Qualifiers: Hypertension type: essential hypertension Qualified Code(s): I10 - Essential (primary) hypertension Plan: Patient's blood pressure acceptable today in office. His blood pressure is well controlled with lifestyle and dietary modifications. Goal blood pressures to remain below 140/90 (3) Hypothyroidism: Code(s): E03.9 - Hypothyroidism, unspecified Category: Medical Qualifiers: Hypothyroidism type: unspecified Qualified Code(s): E03.9 - Hypothyroidism, unspecified Plan: Most recent TSH stable. Continues with levothyroxine 125 mcg daily. Will continue to follow TSH to assure normal. (4) GISELL (generalized anxiety disorder): Code(s): F41.1 - Generalized anxiety disorder Category: Medical Plan: As per HPI patient has suffered with anxiety for quite some time. He continues with buspirone 5 mg at night with decent affect. Still does have breakthrough anxiety related to stress at work (5) Lumbar spondylosis with myelopathy: Code(s): M47.16 - Other spondylosis with myelopathy, lumbar region Category: Medical Plan: Patient continues to follow back specialist to which he gets injections in his lower lumbar spine quarterly. He does use tramadol, pregabalin and methocarbamol which do a decent job on reducing his pain as well. He is interested in a few extra tramadol to use for breakthrough pain. We discussed increasing his total 30 day tramadol dose to 45 tablets so that patient can use an extra tramadol for bad pain days Orders: Orders Influenza [id number] Immunization Today Z23 - Encounter for immunization Microalbumin, Random (w Creat) Today I10 - Essential (primary) hypertension Comprehensive [place]. Panel Fast Today I10 - Essential (primary) hypertension TSH reflex Free T4 Today E03.9 - Hypothyroidism, unspecified Complete Blood Count no Diff Today I10 - Essential (primary) hypertension Medications: Changed From tramadol 50 mg PO DAILY 30 days PRN 30 tabs 3RF pain M47.16 - Other spondylosis with myelopathy, lumbar region To tramadol 50 mg PO BID PRN 45 tabs 3RF pain 30 days M47.16 - Other spondylosis with myelopathy, lumbar region
[2023-12-24 09:34] VITALS: BP 116/82; PULSE 67; O2SAT 97; BMI 26.8
== END 2023-12-24 09:58 | disposition home or self-care (01) ==
PROVIDERS: PCP Physician Assistant; Visit Provider Physician Assistant
DX: Z00.00 Encounter for general adult medical examination without abnormal findings (principal); I10 Essential (primary) hypertension; E03.9 Hypothyroidism, unspecified; F41.1 Generalized anxiety disorder; M47.16 Other spondylosis with myelopathy, lumbar region; Z23 Encounter for immunization

== ENCOUNTER → 2023-12-24 09:26 | Outpatient (BNVA) | payer OTHER, SELFPAY | PROVIDERS: PCP Physician Assistant; Visit Provider Physician Assistant | DX: Z00.00 Encounter for general adult medical examination without abnormal findings (principal); I10 Essential (primary) hypertension; E03.9 Hypothyroidism, unspecified; F41.1 Generalized anxiety disorder; M47.816 Spondylosis without myelopathy or radiculopathy, lumbar region; Z79.899 Other long term (current) drug therapy; Z23 Encounter for immunization | CPT/HCPCS: 90471; 90656; 96127 ==

== ENCOUNTER 2024-06-24 08:27 | Outpatient (AMB) | payer OTHER, SELFPAY ==
[2024-06-24 08:35] VITALS: BP 104/72; PULSE 64; RESP 16; TEMP 36.4; O2SAT 98; BMI 28.3
--- NOTE | 2024-06-24 08:35 | A.OFFPC_ITS ---
Vital Signs 06/24/24 08:35 Height 5 ft 7 in Weight 180 lb 12.8 oz BMI 28.3 BP 104/72 Blood Pressure Location Lt brachial Position Sitting Respiration 16 Pulse 64 Pulse Source Pulse Oximeter Temp 97.5 F Temp Source Temporal Artery Scan Pulse Oximetry (%) 98 Oxygen Delivery Method Room Air Intake Visit Reasons: f/u reji Senior Systems Analyst Required: No Accompanied by: Self / Same As Patient Allergies No Known Allergies Allergy (Verified 06/24/24 08:45) Medication List - Last Reconciled 06/24/24 by Ean Navarro PA-C celecoxib 100 mg PO BID cholecalciferol (vitamin D3) 25 mcg PO DAILY levothyroxine 125 mcg PO DAILY 90 days methocarbamol 750 mg PO BEDTIME pregabalin 75 mg PO BID sumatriptan succinate take 1 tab at onset of headache; if no relief, may repeat 1 tab after at least 2 hrs; max = 2 tabs/24 hrs PO 30 days tadalafil (Cialis) 20 mg PO DAILY 7 days tramadol 50 mg PO BID PRN 30 days Tobacco use date assessed: 06/24/24 Dental Screening Dental Screen Date: 06/24/24 Did you have a dental visit in the last 12 months?: Yes Did you have a dental problem in the last 6 months where you did not have access to dental care?: No Was dental information given to patient?: Patient has dentist HPI f/u reji HPI Details Patient is a 43--year-old male here today for follow-up visit. Patient has a past medical history significant for hypothyroidism, GERD, anxiety, history alcohol abuse, chronic lumbar spine pain. Anxiety: Patient does report using buspirone 5 mg before bed which has helped him with his anxiety. He is still does have breakthrough anxiety related to his work and stress. .. ? Major depressive disorder:? Feels his depression is well managed without mental health medications.? Has been sober now for nearly 5 years?. 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 ? .. ? Hypertension: Has been checking his blood pressure at home reports systolic blood pressure is 1 teens to 120s.? Denies any chest discomfort palpitations.? .. ? Hypothyroid:? Most recent TSH has been stable. He continues on levothyroxine 125 mcg. Will recheck TSH to ensure stable. ? .. ? Lumbar spine pain:? Patient is followed by spine in [facility] and received cortisone injection lumbar spine which helped 50 %.? Patient reports his lumbar spine pain has been stable for the most part though at times he does need an extra tremor though during the day to help him with his pain. He is interested in increasing his total monthly amount of tremor though in order to be able to take an extra dose. He does understand they habit- forming nature of tramadol and does promise to use on a p.r.n. 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 Cognitive needs: No Hearing needs: No Vision needs: Yes (glasses) Questionnaire Thrive Questionnaire Date Thrive assessed: 06/24/24 I am a: Patient What is your living situation today?: I have a steady place to live Within the past 12 months, did the food you bought not last and you didn't have the money to get more?: Never true Within the past 12 months, did you worry whether your food would run out before you got money to buy more?: Never true Do you have trouble paying for medicines?: No Do you have trouble getting transportation to medical appointments?: No Do you have trouble paying your heating and electricity bill?: No Do you have trouble taking care of your child, family member or friend?: No Do you have trouble with day-to-day activities such as bathing, preparing meals, shopping, managing finances, etc.?: No Are you currently unemployed and looking for a job?: No Are you interested in more education?: No Please select the resources that you would like help with: None Currently or been in a relationship where the following occur: No concerns reported THRIVE Score: 0 AUDIT C Alcohol Use Questionnaire (AUDIT-C) 1. How often do you have a drink containing alcohol?: Never 3. How often do you have six or more drinks on one occasion?: Never Total Score: 0 Score Reviewed/Action Taken: No GISELL-7 AMB Questionnaire GISELL-7 Date GISELL - 7 assessed: 12/24/23 Source: Developed by Drs. Tiago Jalloh, Keyona Bowden, Bonifacio Call and colleagues, with an educational layton from [employer] Review of Systems Const Denies headache(s) Eyes Denies loss of vision ENT Denies vertigo, Denies dizziness, Denies headache(s) and Denies sore throat Card Denies chest pain, Denies leg edema and Denies lightheadedness Resp Denies cough, Denies hemoptysis and Denies wheezing GI Denies abdominal pain, Denies melena, Denies constipation, Denies diarrhea and Denies vomiting Denies dysuria, Denies urinary frequency and Denies urinary urgency Musc Denies arthralgias, Denies joint swelling, Denies numbness and Denies tingling Neuro Denies Abnormal speech present, Denies behavioral changes, Denies vertigo, Denies dizziness, Denies headache(s), Denies loss of vision, Denies memory loss, Denies numbness and Denies tingling Psych Denies anxiety, Denies behavioral changes, Denies depression, Denies memory loss and Denies panic attacks Rock/Lymph Denies easy bleeding and Denies easy bruising Aller/Immun Denies wheezing Physical exam (Primary Care) Vital Signs: Last Vital Signs Temp 97.5 F 06/24/24 08:35 Pulse 64 06/24/24 08:35 Resp 16 06/24/24 08:35 BP 104/72 06/24/24 08:35 Pulse Ox 98 06/24/24 08:35 Oxygen Delivery Method Room Air 06/24/24 08:35 BMI result Body Mass Index 28.3 Tobacco/Smoking Status: Tobacco use Status Tobacco use date assessed 06/24/24 06/24/24 08:44 Patient Tobacco Use Status Never used Tobacco 06/24/24 08:44 e-Cigarette/Vaping Use Never Used 06/24/24 08:44 Thrive Assessment: Date of Thrive Assessment Date Thrive assessed 06/24/24 06/24/24 08:44 Currently or been in a relationship where the following occur: No concerns reported Const General: healthy appearing, no acute distress, alert and awake Nutritional Appearance: well nourished Orientation/consciousness: oriented to person, oriented to place and oriented to time HENMT Ears: TM's normal bilaterally General nose exam: Normal nasal mucous membranes and turbinates present Eyes Conjunctivae: conjunctivae normal Sclerae: sclerae normal Pupils: Equal, round and reactive pupils present Neck Neck: Yes no lymphadenopathy and Yes no JVD Thyroid: Thyroid normal Carotids: no bruits Resp Effort & Inspection: normal respiratory effort and not tachypneic Auscultation: no crackles, no rales, no rhonchi and no wheezes Cardio Rate: regular rate Rhythm: regular rhythm Heart sounds: no murmurs and normal S1 and S2 GI Palpation (GI): Soft to palpation, nontender, no hepatomegaly and no splenomegaly Auscultation: normal bowel sounds Skin General skin exam: no rashes or lesions noted and dry skin Neuro General: oriented to person, oriented to place and oriented to time Cranial nerves: Yes Equal, round and reactive pupils present Speech: No Abnormal speech present Gait exam (Neuro): Normal gait present Motor exam (neuro): no tremor noted Extrem Right upper extremity: full ROM Left upper extremity: full ROM Right lower extremity: full ROM; no edema Left lower extremity: full ROM; no edema Psych Mental Status: mental status grossly normal Speech and movement: Normal speech and movement present Affect: normal affect Attitude: cooperative Thought process: Normal thought process present Coding Level of Care Code Est Pt Level 4 (80671) Diagnoses Essential hypertension I10 Hypertension type: essential hypertension Hypothyroidism, unspecified type E03.9 Hypothyroidism type: unspecified GISELL (generalized anxiety disorder) F41.1 Lumbar spondylosis with myelopathy M47.16 Migraine without aura and without status migrainosus, not intractable G43.009 Migraine type: without aura Status migrainosus presence: without status migrainosus Intractability: not intractable Assessment & Plan Assessment & Plan (1) HTN (hypertension): Code(s): I10 - Essential (primary) hypertension Category: Medical Qualifiers: Hypertension type: essential hypertension Qualified Code(s): I10 - Essential (primary) hypertension Plan: Patient's blood pressure acceptable today in office. His blood pressure is well controlled with lifestyle and dietary modifications. Goal blood pressures to remain below 140/90 (2) Hypothyroidism: Code(s): E03.9 - Hypothyroidism, unspecified Category: Medical Qualifiers: Hypothyroidism type: unspecified Qualified Code(s): E03.9 - Hypothyroidism, unspecified Plan: Most recent TSH stable. Continues with levothyroxine 125 mcg daily. Will continue to follow TSH to assure normal. (3) GSIELL (generalized anxiety disorder): Code(s): F41.1 - Generalized anxiety disorder Category: Medical Plan: As per HPI patient has suffered with anxiety for quite some time. He continues with buspirone 5 mg at night with decent affect. Still does have breakthrough anxiety related to stress at work (4) Lumbar spondylosis with myelopathy: Code(s): M47.16 - Other spondylosis with myelopathy, lumbar region Category: Medical Plan: Patient continues to follow back specialist to which he gets injections in his lower lumbar spine quarterly. He does use tramadol, pregabalin and methocarbamol which do a decent job on reducing his pain as well. He is interested in a few extra tramadol to use for breakthrough pain. (5) Migraines: Code(s): G43.909 - Migraine, unspecified, not intractable, without status migrainosus Category: Medical Qualifiers: Migraine type: without aura Status migrainosus presence: without status migrainosus Intractability: not intractable Qualified Code(s): G43.009 - Migraine without aura, not intractable, without status migrainosus Plan: Patient does report his migraines has been manageable. Does use sumatriptan on an as needed basis with good effect. He is interested in reducing his dose of sumatriptan to 25 to get more tablets per month for ease of use. Medications: New sumatriptan succinate take 1 tab at onset of headache; if no relief may repeat 1 tab after at least 2 hrs; max = 4 tabs/24 hr PO 30 days 9 tabs 2RF G43.009 - Migraine without aura, not intractable, without status migrainosus Refilled tadalafil (Cialis) administer approximately 30min before sexual activity; do not use more than 1 dose per 24hrs 20 mg PO DAILY 7 days 7 tabs 2RF sexual activity N52.9 - Male erectile dysfunction, unspecified Discontinued sumatriptan succinate Discontinued Reason: Doctor's Order take 1 tab at onset of headache; if no relief, may repeat 1 tab after at least 2 hrs; max = 2 tabs/24 hrs PO 30 days 10 tabs 2RF G43.009 - Migraine without aura, not intractable, without status migrainosus Patient Instructions: Goal: Blood pressure to remain below 140/90 Barriers: Adherence to physical activity and healthy eating habits
== END 2024-06-24 09:02 | disposition home or self-care (01) ==
LOC: HO.HMCH 08:28
PROVIDERS: PCP Physician Assistant; Visit Provider Physician Assistant
DX: I10 Essential (primary) hypertension (principal); E03.9 Hypothyroidism, unspecified; F41.1 Generalized anxiety disorder; M47.16 Other spondylosis with myelopathy, lumbar region; G43.009 Migraine without aura, not intractable, without status migrainosus

== ENCOUNTER → 2024-06-24 08:27 | Outpatient (BNVA) | payer OTHER, SELFPAY | PROVIDERS: PCP Physician Assistant; Visit Provider Physician Assistant | DX: Z13.89 Encounter for screening for other disorder (principal) ==

== ENCOUNTER 2025-01-04 09:49 | Outpatient (AMB) | payer OTHER, SELFPAY ==
--- NOTE | 2025-01-04 10:03 | A.OFFPC_ITS ---
Vital Signs 01/04/25 10:04 Height 5 ft 7 in Weight 183 lb 8 oz BMI 28.7 BP 110/70 Blood Pressure Location Lt brachial Position Sitting Pulse 63 Pulse Source Pulse Oximeter Temp 97.3 F Temp Source Temporal Artery Scan Pulse Oximetry (%) 97 Oxygen Delivery Method Room Air Intake Visit Reasons: Annual Exam Intake Note: Patient is here today for a physical. Senior Environmental Technician Required: No Line Up Examiner: Not Required per policy Accompanied by: Self / Same As Patient Allergies No Known Allergies Allergy (Verified 01/04/25 10:11) Medication List - Last Reconciled 01/04/25 by Ean Navarro PA-C celecoxib 100 mg PO BID cholecalciferol (vitamin D3) 25 mcg PO DAILY levothyroxine 125 mcg PO DAILY 90 days methocarbamol 750 mg PO BEDTIME 90 days pregabalin 75 mg PO BID sertraline 25 mg PO DAILY 90 days sumatriptan succinate take 1 tab at onset of headache; if no relief may repeat 1 tab after at least 2 hrs; max = 4 tabs/24 hr PO 90 days sumatriptan succinate 50 mg PO .QD PRN tadalafil (Cialis) 20 mg PO DAILY 7 days tramadol 50 mg PO BID PRN 30 days Tobacco use date assessed: 01/04/25 Dental Screening Dental Screen Date: 06/24/24 HPI Annual Exam HPI Details Patient is a 44 -year-old male here today for an annual physical. Patient has a past medical history significant for hypothyroidism, GERD, anxiety, history alcohol abuse, chronic lumbar spine pain. PATIENT IS CURRENTLY IN NURSING SCHOOL AT [facility] Concern--> He reports urinary hesitancy, characterized by difficulty initiating urination and a sensation of incomplete bladder emptying, which has been present for the past year to year and a half. There is no family history of prostate cancer, and he denies nocturia. Anxiety: Feels his anxiety has been well controlled as of late. Continues with sertraline 25 mg. .. ? Major depressive disorder:? Feels his depression is well managed without mental health medications.? Has been sober now for nearly 6 years?. 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 ? .. ? Hypertension: Has been checking his blood pressure at home reports systolic blood pressure is 1 teens to 120s.? Denies any chest discomfort palpitations.? .. ? Hypothyroid:? Have noted a bit of weight gain over the last year. Most recent TSH has been stable. He continues on levothyroxine 125 mcg. Will recheck TSH to ensure stable. ? .. ? Lumbar spine pain:? Patient is followed by [facility] and received cortisone injection lumbar spine which helped 50 %.? Patient reports his lumbar spine pain has been stable for the most part though at times he does need an extra tremor though during the day to help him with his pain. He is interested in increasing his total monthly amount of tremor though in order to be able to take an extra dose. He does understand they habit- forming nature of tramadol and does promise to use on a p.r.n. basis Vaccines: Up-to-date with COVID vaccine, tetanus vaccine, considering flu vaccine today. 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 1. Little interest or pleasure in doing things: not at all 2. Feeling down, depressed, or hopeless: not at all 3. Trouble falling or staying asleep, or sleeping too much: not at all 4. Feeling tired or having little energy: not at all 5. Poor appetite or overeating: not at all 6. Feeling bad about yourself - or that you are a failure or have let yourself or your family down: not at all 7. Trouble concentrating on things, such as reading the newspaper or watching television: not at all 8. Moving or speaking so slowly that other people could have noticed. Or the opposite - being so fidgety or restless that you have been moving around a lot more than usual: not at all 9. Thoughts that you would be better off or of hurting yourself in some way: not at all Total score: 0 Depression Screening Interpretation: Negative Depression Screening Done: Yes 83272 - PHQ-9 Billing: Yes Source: Developed by Drs. Tiago Jalloh, Keyona Bowden, Bonifacio Call and colleagues, with an educational layton from [employer]. Thrive Questionnaire Date Thrive assessed: 06/24/24 I am a: Patient What is your living situation today?: I have a steady place to live Within the past 12 months, did the food you bought not last and you didn't have the money to get more?: Never true Within the past 12 months, did you worry whether your food would run out before you got money to buy more?: Never true Do you have trouble paying for medicines?: No Do you have trouble getting transportation to medical appointments?: No Do you have trouble paying your heating and electricity bill?: No Do you have trouble taking care of your child, family member or friend?: No Do you have trouble with day-to-day activities such as bathing, preparing meals, shopping, managing finances, etc.?: No Are you currently unemployed and looking for a job?: No Are you interested in more education?: No Please select the resources that you would like help with: None Currently or been in a relationship where the following occur: No concerns reported THRIVE Score: 0 AUDIT C Alcohol Use Questionnaire (AUDIT-C) 1. How often do you have a drink containing alcohol?: Never Total Score: 0 GISELL-7 AMB Questionnaire GISELL-7 Date GISELL - 7 assessed: 01/04/25 Feeling nervous, anxious, or on edge: 1 = Several days Not being able to stop or control worryin = Several days Worrying too much about different things: 0 = Not at all Trouble relaxin = Not at all Being so restless that it is hard to sit still: 0 = Not at all Becoming easily annoyed or irritable: 0 = Not at all Feeling afraid as if something awful might happen: 0 = Not at all Total GISELL-7 score (0-4 normal; 5-9 mild; 10-14 moderate; 15-21 severe): 2 Source: Developed by Drs. Tiago Jalloh, Keyona Bowden, Bonifacio Call and colleagues, with an educational laytno from [employer]. Review of Systems Const Denies body aches, Denies chills, Denies excessive sweating, Denies fatigue, Denies fever(s) and Denies headache(s) Eyes Denies blurry vision ENT Denies dysphagia, Denies vertigo, Denies dizziness, Denies headache(s), Denies hearing loss and Denies tinnitus Card Denies chest pain, Denies chest pain with activity, Denies syncope, Denies irregular heart rhythm and Denies dyspnea Resp Denies chest congestion, Denies cough, Denies hemoptysis, Denies dyspnea and Denies wheezing GI Denies abdominal pain, Denies melena, Denies hematochezia, Denies coffee ground emesis, Denies dysphagia, Denies diarrhea, Denies nausea and Denies vomiting Denies difficulty urinating, Denies dysuria, Denies urinary frequency, Denies urinary hesitancy and Denies urinary urgency Musc Denies arthralgias, Denies limited range of motion, Denies muscle cramps and Denies muscle weakness Skin/Breast Denies rash and Denies skin ulcer Neuro Denies Abnormal speech present, Denies confusion, Denies vertigo, Denies dizziness, Denies syncope, Denies headache(s), Denies memory loss and Denies seizure-like activity Psych Denies anxiety, Denies confusion, Denies depression, Denies memory loss, Denies panic attacks and Denies paranoia Endo Denies excessive sweating, Denies fatigue, Denies flushing, Denies polydipsia and Denies polyuria Aller/Immun Denies wheezing Physical exam (Primary Care) Vital Signs: Last Vital Signs Temp 97.3 F 01/04/25 10:04 Pulse 63 01/04/25 10:04 BP 110/70 01/04/25 10:04 Pulse Ox 97 01/04/25 10:04 Oxygen Delivery Method Room Air 01/04/25 10:04 BMI result Body Mass Index 28.7 Tobacco/Smoking Status: Tobacco use Status Tobacco use date assessed 01/04/25 01/04/25 10:08 Patient Tobacco Use Status Never used Tobacco 01/04/25 10:08 e-Cigarette/Vaping Use Never Used 01/04/25 10:08 PHQ-9: PHQ-9 Score PHQ-9: Total score 0 01/04/25 10:36 Depression Screening Interpretation: Negative Thrive Assessment: Date of Thrive Assessment Date Thrive assessed 06/24/24 01/04/25 10:08 Currently or been in a relationship where the following occur: No concerns reported Const General: cooperative, comfortable, no acute distress, alert and awake; No confusion Orientation/consciousness: oriented to person, oriented to place, patient oriented x3 and No confusion HENMT Head: Yes normocephalic Ears: external ears normal and TM's normal bilaterally Face and sinus: No sinus tenderness Mouth: Normal oral and palatal mucosa present and tongue normal Teeth and gingiva: dentition normal and gingiva normal Throat: Yes posterior oropharynx normal, Yes tonsils normal and Yes uvula midline Eyes Conjunctivae: conjunctivae normal Sclerae: sclerae normal Pupils: Equal, round and reactive pupils present EOM: EOMs intact bilaterally Direct Ophthalmoscopy: No no photophobia Neck Neck: Yes no lymphadenopathy, No tender and Yes no JVD Thyroid: Thyroid normal Carotids: no bruits Chest Chest palpation & inspection: no tenderness Resp Effort & Inspection: normal respiratory effort, no audible wheezes, not labored and no stridor Auscultation: no crackles, no rales, no rhonchi and no wheezes Cardio Jugular venous distension: no JVD Rate: regular rate, not bradycardic and not tachycardic Rhythm: regular rhythm Bruits: no carotid bruits Peripheral pulses: Peripheral pulses 2+ throughout GI Inspection: Yes normal to inspection, No abdominal wall ecchymosis and No visible herniation Palpation (GI): Soft to palpation, nontender, no guarding, not rigid and No hepatosplenomegaly present Auscultation: normoactive bowel sounds General: Yes no CVA tenderness Back/Spine/Pelvis Back: no CVA tenderness and No back tenderness Cervical Spine: cervical ROM normal Thoracic/Lumbar Spine: thoracic and lumbar spine normal to inspection, straight leg raise negative bilaterally, No thoraco-lumbar ROM limited and No lumbar spinal tenderness Skin Lesions: no lesions Rashes: no rashes Wounds: no wounds Neuro General: oriented to person, oriented to place, patient oriented x3, CN's II-XI intact bilaterally and No confusion Cranial nerves: Yes Equal, round and reactive pupils present and Yes Normal accommodation reflex present Cognition (Neuro): normal cognition Speech: No Abnormal speech present Gait exam (Neuro): Normal gait present Motor exam (neuro): 5/5 motor strength present throughout Extrem Right upper extremity: full ROM; no cyanosis Left upper extremity: full ROM; no cyanosis Right lower extremity: no edema Left lower extremity: no edema Psych Appearance: grossly normal Mental Status: mental status grossly normal Affect: normal affect Attitude: cooperative Thought process: Normal thought process present Office Procedures Flu Questionnaire Does the patient have a severe egg allergy?: No Does the patient have severe life threatening allergies?: No Does the patient have a fever or illness today?: No Has the patient ever had Guillain-Encinal Syndrome?: No Has the patient ever had any past reaction to a flu shot?: No Immunizations Fluarix [id number] (PF) 45 mcg (15 mcg x 3)/0.5 mL IM syringe Performing Provider: Ean Navarro PA-C [place] [facility] [place] [facility] Administered by: HORACIO Shi on 01/04/25 10:36 Dose Route Admin Location Dispensed Lot Number Expiration Date NDC Auto Damage Insurance Appraiser 0.5 mL IM Left Deltoid 0.5 mL [id number] 09/13/25 [id number] [employer] VIS Given Date VIS Provided VIS Publication Date 01/04/25 Single Vaccine 24 Eligibility Eligibility Date Funding Source Not [facility] Eligible 01/04/25 Private Coding Level of Care Code Est Pt Prev Care 40-64y([id number]) Diagnoses Annual physical exam Z00.00 Essential hypertension I10 Hypertension type: essential hypertension Hypothyroidism, unspecified type E03.9 Hypothyroidism type: unspecified GISELL (generalized anxiety disorder) F41.1 Lumbar spondylosis with myelopathy M47.16 History of alcohol use disorder Z87.898 Weak urinary stream R39.12 Additional Codes PHQ-9 - 23093 - PHQ-9 Billing: Yes ([id number]) Assessment & Plan Assessment & Plan (1) Annual physical exam: Code(s): Z00.00 - Encounter for general adult medical examination without abnormal findings Category: Medical Plan: As per HPI (2) HTN (hypertension): Code(s): I10 - Essential (primary) hypertension Category: Medical Qualifiers: Hypertension type: essential hypertension Qualified Code(s): I10 - Essential (primary) hypertension Plan: Patient's blood pressure acceptable today in office. His blood pressure is well controlled with lifestyle and dietary modifications. Goal blood pressures to remain below 140/90 (3) Hypothyroidism: Code(s): E03.9 - Hypothyroidism, unspecified Category: Medical Qualifiers: Hypothyroidism type: unspecified Qualified Code(s): E03.9 - Hypothyroidism, unspecified Plan: Have noted some weight gain over the last 6 months-1 yr. Most recent TSH stable. Continues with levothyroxine 125 mcg daily. Will continue to follow TSH to assure normal. (4) GISELL (generalized anxiety disorder): Code(s): F41.1 - Generalized anxiety disorder Category: Medical Plan: Feels his anxiety and depression has been well managed. He is in a better state of mind as of late. Continues with a sobriety (5) Lumbar spondylosis with myelopathy: Code(s): M47.16 - Other spondylosis with myelopathy, lumbar region Category: Medical Plan: Patient continues to follow back specialist to which he gets injections in his lower lumbar spine quarterly. He does use tramadol, pregabalin and methocarbamol which do a decent job on reducing his pain as well. He is interested in a few extra tramadol to use for breakthrough pain. (6) History of alcohol use disorder: Code(s): Z87.898 - Personal history of other specified conditions Category: Medical Plan: Patient has been sober now from alcohol for over 5 years. (7) Weak urinary stream: Code(s): R39.12 - Poor urinary stream Category: Medical Plan: For urinary hesitancy, a PSA test will be included in the lab work to assess prostate health, considering the patient's age and symptoms. Orders: Orders Microalbumin, Random (w Creat) Today I10 - Essential (primary) hypertension Complete Blood Count no Diff Today I10 - Essential (primary) hypertension MMR IgG Measles Mumps Rubella Today I10 - Essential (primary) hypertension Prostate Specific Antigen Scr Today R39.12 - Poor urinary stream, Z12.5 - Encounter for screening for malignant neoplasm of prostate TSH reflex Free T4 Today E03.9 - Hypothyroidism, unspecified Comprehensive [place]. Panel Fast Today I10 - Essential (primary) hypertension Varicella IgG Antibody Today I10 - Essential (primary) hypertension T Spot TB Today I10 - Essential (primary) hypertension, Z11.1 - Encounter for screening for respiratory tuberculosis Influenza [id number] Immunization Today Z23 - Encounter for immunization Medications: Refilled tramadol 50 mg PO BID PRN 60 tabs 2RF pain 30 days M47.16 - Other spondylosis with myelopathy, lumbar region
[2025-01-04 10:04] VITALS: BP 110/70; PULSE 63; TEMP 36.3; O2SAT 97; BMI 28.7
--- OUTSIDE RECORDS SUMMARY | 2025-01-04 11:15 | XMS_ITS | Patient Health Record ---
Author Organization [facility] Address [address] [place] [address] Care Team Providers Care Solution Professional Name Role Phone Devon (RETIRED) Mil HERNANDEZ Primary Care Provide r Mike Lorenzana Jr Unavailable [phone] Reason For Referral No Information Medications Medication SIG (Take, Route, Frequency, Duration) Notes Start Date End Date Status MoviPrep 100 GM as directed before colonoscopy Orally; Duration: 1 dose 11/24/2013 Active Levothyroxine Sodium 175 MCG 1 tablet on an empty stomach in the morning Orally Once a day Active Butrans Active Omeprazole 20 MG 1 capsule Orally Onc e a day Active traMADol HCl Active Lyrica 75 MG 1 capsule Orally Twi ce a day Active Metaxalone Active Problems Problem Type SNOMED Code ICD Code Onset Dates Problem Status W/U Status Risk Notes Problem Esophageal reflux (149029962) Esophageal reflux (530.81) Active confirmed Plan Of Treatment Future Test Test Name Order Date UPPER GI ENDOSCOPY 11/24/2013 COLONOSCOPY 11/24/2013 Insurance Providers Payer Name Payer Address Payer Phone Subscriber Number Group Number Insured Name Patient Relationship to Insured Coverage Start Date Coverage End Date [facility] [employer] [address] [place] [address] [phone] [id number] Self - patient is the insured Medical (General) History Medical History History ICD Code hypothyroidism GERD disc disease with radiculopathy depression Surgical History Surgery Date(Month/Year) spine surgery
== END 2025-01-04 10:39 | disposition home or self-care (01) ==
LOC: HO.HMCH 09:50
PROVIDERS: PCP Physician Assistant; Visit Provider Physician Assistant
DX: Z00.00 Encounter for general adult medical examination without abnormal findings (principal); I10 Essential (primary) hypertension; E03.9 Hypothyroidism, unspecified; F41.1 Generalized anxiety disorder; M47.16 Other spondylosis with myelopathy, lumbar region; Z87.898 Personal history of other specified conditions; R39.12 Poor urinary stream; Z23 Encounter for immunization

== ENCOUNTER → 2025-01-04 09:49 | Outpatient (BNVA) | payer OTHER, SELFPAY | PROVIDERS: PCP Physician Assistant; Visit Provider Physician Assistant | DX: Z00.00 Encounter for general adult medical examination without abnormal findings (principal); K21.9 Gastro-esophageal reflux disease without esophagitis; F41.9 Anxiety disorder, unspecified; F32.A Depression, unspecified; I10 Essential (primary) hypertension; E03.9 Hypothyroidism, unspecified; F41.1 Generalized anxiety disorder; M47.16 Other spondylosis with myelopathy, lumbar region; R39.12 Poor urinary stream; Z23 Encounter for immunization; Z87.898 Personal history of other specified conditions | CPT/HCPCS: 90471; 90656; 96127 ==

== ENCOUNTER 2025-01-05 08:21 | Outpatient (REF) | payer OTHER, SELFPAY ==
--- OUTSIDE RECORDS SUMMARY | 2025-01-05 08:34 | XMS_ITS | Patient Health Record ---
Author Organization [facility] Address [address] [place] [address] Care Team Providers Care Learning Strategist Name Role Phone Devon (RETIRED) Mil HERNANDEZ Primary Care Provide r Mike Lorenzana Jr Unavailable [phone] Reason For Referral No Information Medications Medication [...] W/U Status Risk Notes Problem Esophageal reflux (968579203) Esophageal reflux (530.81) Active confirmed Plan Of Treatment Future Test Test Name Order Date UPPER GI ENDOSCOPY 11/24/2013 COLONOSCOPY 11/24/2013 Insurance Providers Payer Name Payer Address Payer Phone Subscriber Number Group Number Insured Name Patient Relationship to Insured Coverage Start Date Coverage End Date [facility] [place] [employer] [place] [address] [place] [address] [phone] [id number] Self - patient is the insured Medical (General) History Medical History History ICD Code hypothyroidism GERD disc disease with radiculopathy depression Surgical History Surgery Date(Month/Year) spine surgery
[2025-01-05 08:53] LABS: Hematocrit 43.8 % (42.0-52.0); Hemoglobin 14.5 g/dl (14.0-18.0); Mean Corpuscular HGB Conc 33.1 g/dl (31.0-36.0); Mean Corpuscular Hemoglobin 30.1 pg (27.0-33.0); Mean Corpuscular Volume 90.9 fL (80.0-98.0); NRBC Abs Auto 0.000 X10*3/uL (0.0-0.012); NRBC Pct Auto 0.0 /100WBC (0.0-0.2); Platelet Count 189 X10*3/uL (160-400); Red Blood Count 4.82 X10*6/uL (4.60-5.80); White Blood Count 6.5 X10*3/uL (4.8-10.8)
[2025-01-05 09:39] LABS: Alanine Aminotransferase 25 U/L (0-40); Albumin Level 4.8 g/dL (3.5-5.0); Alkaline Phosphatase 72 U/L (39-117); Anion Gap 11 (12-20); Aspartate Amino Transferase 27 U/L (5-37); Blood Urea Nitrogen 15 mg/dL (9-16); Calcium 9.4 mg/dL (8.4-10.2); Carbon Dioxide 27 mmol/L (22-29); Chloride 110 mmol/L (96-108); Estimated Glomerular Filt Rate > 60; Potassium 4.6 mmol/L (3.3-5.1); Sodium 143 mmol/L (135-145); Total Protein 6.8 g/dL (6.5-8.0)
[2025-01-05 10:26] LABS: Free T4 (Free Thyroxine) 1.11 ng/dL (0.71-1.85)
[2025-01-06 06:13] LABS: Rubeola IgG (Measles) 52.60 AU/mL
[2025-01-08 00:43] LABS: TS Negative Control Passed; TS Panel A 0; TS Panel B 0; TS Positive Control Passed; TSpotTB Negative (Negative)
== END 2025-01-05 08:22 | disposition home or self-care (01) ==
LOC: HO.LAB 08:21
PROVIDERS: PCP Physician Assistant; Visit Provider Physician Assistant
DX: Z12.5 Encounter for screening for malignant neoplasm of prostate (principal); Z11.1 Encounter for screening for respiratory tuberculosis; Z01.84 Encounter for antibody response examination; I10 Essential (primary) hypertension; E03.9 Hypothyroidism, unspecified; R39.12 Poor urinary stream
CPT/HCPCS: 36415; 80053; 82043; 82570; 84153; 84439; 84443; 85027; 86481; 86735; 86762; 86765; 86787

== ENCOUNTER 2025-03-07 11:01 | Outpatient (REF) | payer OTHER, SELFPAY ==
--- OUTSIDE RECORDS SUMMARY | 2025-03-07 13:54 | XMS_ITS | Patient Health Record ---
Author Organization [facility] Address [address] [place] [address] Care Team Providers Care Merchandise Clerk Name Role Phone Devon (RETIRED) Mil HERNANDEZ Primary Care Provide r Mike Lorenzana Jr Unavailable Reason For Referral No Information Medications Medication SIG (Take, Route, Frequency, Duration) Notes Start Date End Date Status MoviPrep 100 GM Solution Reconstituted as directed before colonoscopy Orally; Duration: 1 dose 11/24/2013 Active Levothyroxine Sodium 175 MCG Tablet 1 tablet on an empty stomach in the morning Orally Once a day Active Butrans Active Omeprazole 20 MG Capsule Delayed Release 1 capsule Orally Once a day Active traMADol HCl Active Lyrica 75 MG Capsule 1 capsule Orally Tw ice a day Active Metaxalone Active Social History Social History Additional Details Category Social Info Options Details Miscellaneous: Marital status: single 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 Section Notes: stopped alcohol 6 months ago Problems Problem Type SNOMED Code ICD Code Onset Dates Problem Status W/U Status Risk Notes Problem Esophageal reflux (141175520) Esophageal reflux (530.81) Active confirmed Plan Of Treatment Future Test Test Name Order Date UPPER GI ENDOSCOPY 11/24/2013 COLONOSCOPY 11/24/2013 Insurance Providers Payer Name Payer Address Payer Phone Subscriber Number Group Number Insured Name Patient Relationship to Insured Coverage Start Date Coverage End Date [facility] [employer] PROFESSIONAL CLAIMS [address] [place] [address] [id number]ER Self - patient is the insured Medical (General) History Medical History History ICD Code hypothyroidism GERD disc disease with radiculopathy depression Surgical History Surgery Date(Month/Year) spine surgery
--- OUTSIDE RECORDS SUMMARY | 2025-03-07 13:54 | XMS_ITS | Clinical Summary ---
Author Organization [facility] Address [address] [place] [id number] Care Team Providers Care Slurry Man Name Role Phone Mil Osorio Primary Care Provider [phone] Allergies Active Allergy Reactions Criticality Noted Date Comments No Known Drug Allergies Other (See Comments) Medications NEURONTIN 600 mg tablet three times daily 3 Active nortriptyline (PAMELOR) 25 MG capsule once at night 3 Active SOMA 350 mg tablet as needed 3 Active fentanyl (DURAGESIC) 25 mcg/hr 3 Active PROZAC 40 mg capsule x1 3 Active omeprazole (PriLOSEC) [address] Capsule x1 3 Active Text: Levothyroxine Sodium TABS 175 mcg x1 3 Active Active Problems Problem Noted Date Diagnosed Date Hip pain 04/14/2012 Overview (05/16/2014): Joint Pain, Localized In The Hip Low back pain 04/14/2012 Overview (05/16/2014): Lumbago Social History Tobacco Use Types Packs/Day Years Used Date Smoking Tobacco: Never Sex and Gender Information Value Date Recorded Sex Assigned at Not on file Legal Sex Male 10:37 AM EST Gender Identity Not on file Sexual Orientation Not on file Last Filed Vital Signs Vital Sign Reading Time Taken Comments Blood Pressure 138/100 04/14/2012 10:14 AM EST Pulse 101 04/14/2012 10:14 AM EST Temperature - - Respiratory Rate 16 04/14/2012 10:14 AM EST Oxygen Saturation - - Inhaled Oxygen Concentration - - Weight 89.8 kg (198 lb) 04/14/2012 10:14 AM EST Height 170.2 cm (5' 7 ) 04/14/2012 10:14 AM EST Body Mass Index 31.01 04/14/2012 10:14 AM EST Plan of Treatment Not on file Care Teams Slurry Man Relationship Specialty Start Date End Date Mil Osorio [address] [place] [id number] PCP - General 01/24/14
--- OUTSIDE RECORDS SUMMARY | 2025-03-07 13:54 | XMS_ITS | Encounter Summary ---
Author Organization [facility] Address [address] [place] [address] Care Team Providers Care Judicial Law Clerk Name Role Phone Mil Osorio Primary Care Provider [phone] Encounter Details Date Type Department Care Team (Late st Contact Info) Description 04/14/2012 Clinical Conversion Encounter Department of Neurosurgery [facility] Neurosurgery [address] [place] [address] [address] [place] [address] Nik Beth PA Social History Tobacco Use Types Packs/Day Years Used Date Smoking Tobacco: Never Sex and Gender Information Value Date Recorded Sex Assigned at Not on file Legal Sex Male 10:37 AM EST Gender Identity Not on file Sexual Orientation Not on file documented as of this encounter Progress Notes * BONNIE Mcmahon - 05/02/2014 5:34 AM EST [id number],[facility] - [place], [place]. History of Present Illness Mr. Stringer is a pleasant 31-year-old male who presents to clinic for evaluation of lower back pain. 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 He initially felt extreme back pain. He took Naprosyn and once asleep that evening and when he awoke the next morning his pain was worse. At that time he was also having significant leg pain. His leg pain has since improved. He has tried physical therapy, facet injections and epidural steroid injections for treatment of this pain. He has even undergone a neuro stimulator trial with no relief. He does have some right lateral thigh numbness as well as some anterior thigh numbness that does not travel below the knee. His pain is made worse with any sort of activity and he has trouble even changing his son's diapers. He has been unable to because they do any physical activities and has gained approximately 20 pounds since his injury. He has been dealing with this pain for 2 years and has become very frustrated as a result. He is accompanied by his mother who has been very involved in his care and she is clearly upset with his current situation. Upon further investigation, he does complain of some right-sided hip pain. Active Problems 1. Joint Pain, Localized In The Hip 719.45 2. Lumbago 724.2 Current Meds Carisoprodol 350 MG Oral Tablet; as needed; Therapy: (Recorded:14Apr2012) to FentaNYL 25 MCG/HR Transdermal Patch 72 Hour; Therapy: (Recorded:14Apr2012) to Levothyroxine Sodium TABS; 175 mcg x1; Therapy: (Recorded:14Apr2012) to Neurontin 600 MG Oral Tablet; three times daily; Therapy: (Recorded:14Apr2012) to Nortriptyline HCl 25 MG Oral Capsule; once at night; Therapy: (Recorded:14Apr2012) to Omeprazole 40 MG Oral Capsule Delayed Release; x1; Therapy: (Recorded:14Apr2012) to PROzac 40 MG Oral Capsule; x1; Therapy: (Recorded:14Apr2012) to Allergies No Known Drug Allergies Social History Never A Smoker He has a son and he is the primary caregiver. Review of Systems Constitutional: negative. Eyes: negative. ENT: negative. Cardiovascular: negative. Respiratory: negative. Gastrointestinal: negative. Genitourinary: negative. Musculoskeletal: as noted in HPI. Integumentary: negative. Psychiatric: negative. Endocrine: negative. Hematologic/Lymphatic: negative. Vitals [facility] Vitals Data Includes: Current Encounter 14Apr2012 10:14AM Systolic: 138 Diastolic: 100 Heart Rate: 101 BMI Calculated: 31.08 BSA Calculated: 2.01 Height: 5 ft 7 in Weight: 198 lb Respiration: 16 Pain Score: 7 Pain Site: lower back, right thigh and buttock MD Notified of Pain Score Greater Than 3: Yes Allergy Status Reviewed: Yes Physical Exam He is awake, alert and oriented to person, place and time. His face is symmetric and tongue is midline. His pupils are equal and reactive. He has no pronator drift. He moves all extremities with 5/5 strength. He has no lumbar spine tenderness to palpation. He does have right-sided hip pain to palpation. He has no left hip pain to palpation. He does have decreased range of motion in that right hip while I move it around compared to his left. Results/Data I did review his MRI from April 2011 and this shows no disc herniation or malalignment. Assessment 1. Lumbago 724.2 2. Joint Pain, Localized In The Hip 719.45 Mr. Stringer is a pleasant 31-year-old man who has been suffering from low back pain for the past 2 years. He has undergone multiple noninvasive treatment as well as a trial of a neuro stimulator with no results. On MRI, there is no abnormality that would cause his pathology. He does have significant right hip tenderness and decreased range of motion on exam. Given his complete negative workup of lumbar spine pathology I think it is reasonable to look into his hip as a main problem. He does complain of his right hip popping in and out with certain movements. Plan I have arranged for him to undergo right-sided hip x-rays for further evaluation of possible hip pathology as a source of his back pain. I am going to call him with the results of his hip x-rays and he will follow up with me by phone after that appointment with the orthopedic surgeon. If there is no hip pathology he will followup with the pain management for further evaluation. Signatures Electronically signed by : BONNIE CALIX; Apr 14 2012 12:20PM Electronically signed by : BONNIE CALIX; Dec 14 2012 1:51PM documented in this encounter Plan of Treatment Not on file documented as of this encounter Visit Diagnoses Not on filedocumented in this encounter Care Teams Judicial Law Clerk Relationship Specialty Start Date End Date Devon Mil [address] [place] [id number] PCP - General 01/24/14 documented as of this encounter
== END 2025-03-07 11:02 | disposition home or self-care (01) ==
LOC: HO.LAB 11:01
PROVIDERS: PCP Physician Assistant; Visit Provider Physician Assistant
DX: E03.9 Hypothyroidism, unspecified (principal); Z11.1 Encounter for screening for respiratory tuberculosis
CPT/HCPCS: 36415; 84443; 86481